=== PATIENT | female | born 1955 ===

== ENCOUNTER 2017-06-05 09:08 | Outpatient (CLI) | payer OTHER ==
[~2017-06-05 09:08] MED LIST: CLARITIN10 MG PO; GILTUSS COUGH-118 ML PO; GILTUSS LIQUID237 M1 PO; OSEL75CA PO; RELENZA5 MG/DISK IH
== END 2017-06-05 09:14 | disposition home or self-care (01) ==
LOC: NUCLEAR 09:08
DX: M81.0 Age-related osteoporosis without current pathological fracture (principal)

== ENCOUNTER 2017-12-18 09:09 | Outpatient (CLI) | payer OTHER | END 2017-12-18 09:15 | disposition home or self-care (01) | LOC: SONOGRAMA 09:09 | DX: E04.2 Nontoxic multinodular goiter (principal) ==

== ENCOUNTER 2019-06-04 09:23 | Outpatient (CLI) | payer OTHER | END 2019-06-04 09:28 | disposition home or self-care (01) | LOC: SONOGRAMA 09:23 | DX: E04.2 Nontoxic multinodular goiter (principal) ==

== ENCOUNTER 2020-09-19 12:32 | Outpatient (CLI) | payer OTHER | END 2020-09-19 13:32 | disposition home or self-care (01) | LOC: OFIC 805 12:32 | PROVIDERS: ATTEND Otolaryngology Otology & Neurotology | DX: H90.3 Sensorineural hearing loss, bilateral (principal); H69.81 Other specified disorders of Eustachian tube, right ear; H61.21 Impacted cerumen, right ear ==

== ENCOUNTER 2020-09-27 12:31 | Outpatient (CLI) | payer OTHER | END 2020-09-27 12:33 | disposition home or self-care (01) | LOC: NUCLEAR 12:31 | PROVIDERS: ATTEND Specialist | DX: M81.0 Age-related osteoporosis without current pathological fracture (principal) ==

== ENCOUNTER 2021-08-03 08:23 | Outpatient (CLI) | payer OTHER | END 2021-08-03 08:28 | disposition home or self-care (01) | LOC: TOM 08:23 | PROVIDERS: ATTEND Internal Medicine | DX: R42 Dizziness and giddiness (principal); Z86.73 Personal history of transient ischemic attack (TIA), and cerebral infarction without residual deficits ==

== ENCOUNTER 2023-11-05 08:01 | Outpatient (CLI) | payer OTHER | END 2023-11-05 08:04 | disposition home or self-care (01) | LOC: SONOGRAMA 08:01 | PROVIDERS: ATTEND Internal Medicine Endocrinology, Diabetes & Metabolism | DX: E04.2 Nontoxic multinodular goiter (principal); E03.8 Other specified hypothyroidism ==